=== PATIENT | female | born 1970 | race Asian ===

== ENCOUNTER 2018-01-13 07:46 | Day surgery (SDC) | payer OTHER ==
[~2018-01-13 07:46] MED LIST: CEFAZOLIN 2 GM/50 ML (PMX) 50 ML IVPB; SOD CHLORIDE 0.9% 1,000 ML IV
[2018-01-13] MEDS ORDERED: CEFAZOLIN 1 GM INJ (12:14)
[2018-01-13] MEDS ORDERED: PROPOFOL 20 ML (12:14)
[2018-01-13] MEDS ORDERED: LIDOCAINE 2% (SDV) 5 ML INJ (12:14)
[2018-01-13] MEDS ORDERED: ONDANSETRON 4 MG INJ (12:15)
[2018-01-13] MEDS ORDERED: FAMOTIDINE 20 MG INJ (12:15)
[2018-01-13] MEDS ORDERED: DEXAMETHASONE 4 MG/ML 1 ML INJ (12:15)
[2018-01-13] MEDS ORDERED: ACETAMINOPHEN 1000MG/100ML IV 100 ML (12:20)
[2018-01-13] MEDS ORDERED: ONDANSETRON 4 MG INJ IV (12:30)
[2018-01-13] MEDS ORDERED: DIPHENHYDRAMINE 50 MG INJ IV (12:30)
[2018-01-13] MEDS ORDERED: LABETALOL HCL 20MG INJ IV (12:30)
[2018-01-13] MEDS ORDERED: MEPERIDINE 25 MG INJ IV (12:30)
[2018-01-13] MEDS ORDERED: FENTAnyl 50 MCG/ML VIAL IV ×2 (12:30)
[2018-01-13] MEDS ORDERED: ALBUTEROL 0.083% (NEB) 2.5 MG/3 ML AMP HHN (12:30)
[2018-01-13] MEDS ORDERED: OXYCODONE/ACETAMINOPHEN (5/325) TAB PO ×2 (12:30)
[2018-01-13] MEDS ORDERED: morphine (1 MG/ML) 10ML SYRINGE IV ×2 (12:30)
[2018-01-13] MEDS ORDERED: HYDROmorphONE 1 MG/5 ML IV SYRINGE IV ×2 (12:30)
[2018-01-13] MEDS ORDERED: PHENYLephrine (100 MCG/ML) 5ML SYG (12:37)
[2018-01-13] MEDS ORDERED: EPHEDrine SULFATE 50 MG/5 ML SYG (12:37)
[2018-01-13] MEDS ORDERED: HYDROCODONE/APAP (7.5/325) TAB PO (13:30)
== END 2018-01-13 14:36 | disposition home or self-care (01) ==
LOC: SDS 07:46
DX: D05.12 Intraductal carcinoma in situ of left breast (principal); I10 Essential (primary) hypertension; E03.9 Hypothyroidism, unspecified
CPT/HCPCS: 19301; 84703; 88307